=== PATIENT | female | born 1950 | race Caucasian/White ===

== ENCOUNTER → 2016-08-20 | Outpatient (CLI) | payer BC | LOC: GRAD 12:16 | DX: C50.211 Malignant neoplasm of upper-inner quadrant of right female breast (principal); E04.1 Nontoxic single thyroid nodule; R97.8 Other abnormal tumor markers; C78.7 Secondary malignant neoplasm of liver and intrahepatic bile duct; C79.51 Secondary malignant neoplasm of bone; M87.180 Osteonecrosis due to drugs, jaw ==